=== PATIENT | male | born 1975 | race Caucasian/White ===

== ENCOUNTER 2017-10-19 21:42 | Emergency (ER) | payer OTHER ==
[~2017-10-19] VITALS: Ht 180.3 cm; Wt 99.8 kg
[~2017-10-19 21:42] MED LIST: AUGMENTIN 875-1 EACH PO; BACTRIM DS TAB1 EACH PO; DOXYCYCLINE 10100 M1 PO; FLEXERIL PO; LORTAB 7.5/5001 TA3 PO; MEDROLDOSEPACK PO; NOHOMEMEDICATIONS; NORCO 5-325 TA1 EAC1 PO; NORCO 5-325 TA1 EACH PO; PENICILLIN VK250 MG PO; TRAMADOL 50 MG50 MG PO
[2017-10-19 23:02] VITALS: BP 143/96
== END 2017-10-19 23:02 | disposition home or self-care (01) ==
LOC: M.ERS 21:42
DX: S61.217A Laceration without foreign body of left little finger without damage to nail, initial encounter (principal); F17.210 Nicotine dependence, cigarettes, uncomplicated; W26.0XXA Contact with knife, initial encounter; Y93.89 Activity, other specified; Y92.89 Other specified places as the place of occurrence of the external cause; Y99.8 Other external cause status